=== PATIENT | female | born 1995 | race African-American/Black ===

== ENCOUNTER 2017-03-07 22:07 | Emergency (ER) | payer BC ==
[~2017-03-07] VITALS: Ht 160 cm; Wt 59.0 kg
[2017-03-07 22:32] VITALS: BP 138/62
--- NOTE | 2017-03-07 22:45 | PHYS DOC ---
Past Medical History Past Medical History: No Pertinent History Past Surgical History: Other Additional Past Surgical Histo: NOSE SX Alcohol Use: None Drug Use: Marijuana Adult General Chief Complaint Chief Complaint: SKIN PROBLEM HPI HPI Patient is a 21 year old female who presents with what she believes is an insect bite to the right elbow that began 5 days ago, patient states she was at at their facility but she won't say what they did for her. Patient denies any fever. Review of Systems Review of Systems Constitutional: Denies fever or chills [] Eyes: Denies change in visual acuity, redness, or eye pain [] HENT: Denies nasal congestion or sore throat [] Musculoskeletal: Denies back pain or joint pain [] Integument: Right elbow pain and swelling Neurologic: Denies headache, focal weakness or sensory changes [] Endocrine: Denies polyuria or polydipsia [] Allergies Allergies Allergies Coded Allergies Type Severity Reaction Last Updated Verified No Known Drug Allergies 06/14/16 No Physical Exam Physical Exam Constitutional: Well developed, well nourished, no acute distress, non-toxic appearance. [] HENT: Normocephalic, atraumatic, bilateral external ears normal, oropharynx moist, no oral exudates, nose normal. [] Eyes: PERRLA, EOMI, conjunctiva normal, no discharge. [] Skin: Right elbow with a small amount of soft tissue swelling. There is mild amount of superficial cellulitis on the right elbow over the swollen area. There is a tiny puncture wound in the middle of the elbow suspicious of an insect bite. The swollen area is warm and tender to touch but not fluctuant. Neurovascular exam of the right upper extremity is normal. Back: No tenderness, no CVA tenderness. [] Extremities: No tenderness, no cyanosis, no clubbing, ROM intact, no edema. [] Neurologic: Alert and oriented X 3, normal motor function, normal sensory function, no focal deficits noted. [] Psychologic: Affect normal, judgement normal, mood normal. [] Current Patient Data Vital Signs Vital Signs Date Time Temp Pulse Resp B/P (MAP) Pulse Ox O2 Delivery O2 Flow Rate FiO2 03/07/17 22:32 97.9 71 16 100 Room Air 97.9 EKG EKG [] Radiology/Procedures Radiology/Procedures [] Course & Med Decision Making Course & Med Decision Making Pertinent Labs and Imaging studies reviewed. (See chart for details) Patient has cellulitis superficial in nature on the right elbow possibly from an insect bite. Discharged with Bactrim, Tylenol 3, prednisone, and Benadryl. Tetanus is up-to-date. Warm compresses recommended to the elbow. Follow-up with her own doctor in the course of this week. Provided proper return precautions including the need to return to the ED if symptoms worsen. Dragon Disclaimer Dragon Disclaimer This electronic medical record was generated, in whole or in part, using a voice recognition dictation system. Departure Departure Impression: Primary Impression: Cellulitis of right elbow Additional Impression: Insect bite Disposition: HOME, SELF-CARE Condition: STABLE Referrals: NO PCP (PCP) Follow-up with your doctor in the next 7 days Patient Instructions: Cellulitis, Insect Bite, [id number] Additional Instructions: You were seen for cellulitis of the right elbow. This could've occurred from an insect bite or any openings on your skin that got infected. Apply warm compresses to the affected area. Ensure you complete your antibiotics. Come back to the ED if symptoms worsen otherwise follow-up with your doctor in the course of this week. Scripts Acetaminophen With Codeine (TYLENOL WITH CODEINE #3 TABLET) 1 Each Tablet 1 TAB PO PRN Q6HRS Y for PAIN, #30 TAB Prov: NEL DE ANDA APRN 03/07/17 Prednisone (PREDNISONE) 50 Mg Tablet 1 TAB PO DAILY, #5 TAB Prov: NEL DE ANDA APRN 03/07/17 Sulfamethoxazole/Trimethoprim (BACTRIM 400-80 MG TABLET) 1 Each Tablet 1 TAB PO BID, #20 TAB Prov: NEL DE ANDA APRN 03/07/17 Problem Qualifiers Additional Impression: Insect bite Encounter type: initial encounter Qualified Codes: W57.XXXA - Bitten or stung by nonvenomous insect and other nonvenomous arthropods, initial encounter NEL DE ANDA APRN March 07, 2017 22:45
[2017-03-07] MEDS ORDERED: PRED50TA PO (22:49)
[2017-03-07] MEDS ORDERED: ACET-704 PO (22:49)
[2017-03-07] MEDS ORDERED: SULF1TAB23 PO (22:49)
== END 2017-03-07 22:55 | disposition home or self-care (01) ==
LOC: ER 22:17
DX: S50.361A Insect bite (nonvenomous) of right elbow, initial encounter (principal); L03.113 Cellulitis of right upper limb; F12.10 Cannabis abuse, uncomplicated; W57.XXXA Bitten or stung by nonvenomous insect and other nonvenomous arthropods, initial encounter; Y93.89 Activity, other specified; Y99.8 Other external cause status; Y92.89 Other specified places as the place of occurrence of the external cause
CPT/HCPCS: 99283